=== PATIENT | female | born 1980 | race Caucasian/White ===

== ENCOUNTER 2017-04-03 10:21 | Emergency (ER) | payer MEDICAID, OTHER ==
[2017-04-03 12:18] VITALS: BP 127/74
[2017-04-03] MEDS ORDERED: HYDROcodone/ACETAMIN 5-325 MG* 1 TAB PO ONE (13:25)
--- NOTE | 2017-04-03 13:36 | ED ---
Neck Pain - HPI Summary HPI Summary: 37 yr old female with complaint of neck pain. Onset of pain was this morning as she was getting out of bed. She sat up and turned and felt pain in her left side of neck and left scapula. Pain worse with attempting to move head toward the midline and by turning it to the left. Pain is 8/10. Pain is in back of neck and radiates into left shoulder and left scapula. Pain is worse with moving, deep breath. She complains that her left hand fingers feel a little weak. - History of Current Complaint Chief Complaint: UCBackPain Stated Complaint: NECK PAIN Time Seen by Provider: 04/03/17 13:16 Hx Last Menstrual Period: last week - Allergies/Home Medications Allergies/Adverse Reactions: Allergies Allergy/AdvReac Type Severity Reaction Status Date / Time kiwi Allergy Swelling Uncoded 04/03/17 12:18 Of Face,Lips,& Throat Home Medications: Home Medications Aleve 220mg 2 tab PO ONCE PRN 04/03/17 [History Confirmed 04/03/17] buPROPion TAB* [Wellbutrin TAB*] 75 mg PO BID 04/03/17 [History Confirmed ] PMH/Surg Hx/FS Hx/Imm Hx Previously Healthy: Yes Endocrine/Hematology History: Denies: Hx Diabetes, Hx Thyroid Disease Respiratory History: Denies: Hx Asthma - Surgical History [facility] FOR UNDERBITE AND TMJ Infectious Disease History: No Infectious Disease History: Denies: Traveled Outside the [place] in Last 30 Days - Family History Known Family History: Positive: Unknown - Social History Alcohol Use: Rare Substance Use Type: Reports: None Smoking Status (MU): Former Smoker Type: Cigarettes Amount Used/How Often: ONE CIG PER DAY Have You Smoked in the Last Year: Yes Review of Systems Constitutional: Negative Positive: Other - neck pain Negative: Weakness, Paresthesia, Numbness, Syncope, Slurred Speech All Other Systems Reviewed And Are Negative: Yes Physical Exam Triage Information Reviewed: Yes Vital Signs On Initial Exam: Initial Vitals Temp Pulse Resp BP Pulse Ox 97.8 F 80 18 127/74 100 04/03/17 12:09 04/03/17 12:09 04/03/17 12:09 04/03/17 12:09 04/03/17 12:09 Vital Signs Reviewed: Yes Appearance: Positive: Well-Appearing, Pain Distress - mild Skin: Positive: Skin Color Reflects Adequate Perfusion, Dry Eyes: Positive: EOMI ENT: Positive: Normal ENT inspection Neck: Positive: Tenderness @ - low paraspinal muscles of cervical spine. Cardiovascular: Positive: RRR. Negative: Murmur Abdomen Description: Positive: Nontender Musculoskeletal: Positive: Strength/ROM Intact Neurological: Positive: Sensory/Motor Intact - except left hand geospatial engineer is weaker than the right., Alert, Oriented to Person Place, Time, CN Intact II-III Psychiatric: Positive: Normal - Sherin Coma Scale Best Eye Response: 4 - Spontaneous Best Motor Response: 6 - Obeys Commands Best Verbal Response: 5 - Oriented Diagnostics - Vital Signs Vital Signs Temp Pulse Resp BP Pulse Ox 04/03/17 12:09 97.8 F 80 18 127/74 100 - Laboratory Lab Statement: Any lab studies that have been ordered have been reviewed, and results considered in the medical decision making process. Neck Course/Dx - Course Course Of Treatment: 37 yr old with neck pain radicular in nature and associated with left hand geospatial engineer weakness. Discussed with Jeannie in the [facility] and they are aware of patient coming there. She signed the AMA form refusing trasport by ambulance. She wants her father to mechanic driver her since he is here. Risk of delay of care, further neurological imparement and disability understood. - Diagnoses Provider Diagnoses: Neck pain on left side, Radiculopathy of cervical region, Decreased geospatial engineer strength of left hand Discharge - Discharge Plan Condition: Good Disposition: HOME Patient Education Materials: Neck Pain (ED), Acute Neck Pain (ED) Referrals: Carlota Seth NP [Primary Care Provider] - Additional Instructions: You need to immediately go to [facility] for further work up and managment ofyour pain and left hand weakened geospatial engineer.
== END 2017-04-03 13:45 | disposition home or self-care (01) ==
LOC: UCCORT 10:21
DX: M54.12 Radiculopathy, cervical region (principal); Z91.018 Allergy to other foods; Z87.891 Personal history of nicotine dependence
CPT/HCPCS: 99212; G0463

== ENCOUNTER 2019-07-21 12:06 | Emergency (ER) | payer OTHER ==
[2019-07-21 12:20] VITALS: BP 132/73
--- NOTE | 2019-07-21 13:21 | UC ---
Ear Complaint HPI - HPI Summary HPI Summary: Pt presents with c/o nasal congestion, left side cheek/sinus pain and left ear pain X 1 days. - History of Current Complaint Chief Complaint: UCEar Stated Complaint: LEFT EAR COMPLAINT Time Seen by Provider: 07/21/19 13:08 Hx Obtained From: Patient Hx Last Menstrual Period: 06/2019 ?: No Onset/Duration: Sudden Onset, Lasting Days, Still Present Severity Initially: Moderate Severity Currently: Moderate Pain Intensity: 0 Associated Signs/Symptoms: Positive: Hearing Loss, URI Symptoms - Allergies/Home Medications Allergies/Adverse Reactions: Allergies Allergy/AdvReac Type Severity Reaction Status Date / Time kiwi Allergy Swelling Uncoded 07/21/19 12:16 Of Face,Lips,& Throat PMH/Surg Hx/FS Hx/Imm Hx Previously Healthy: Yes - Surgical History Surgical History: Yes Surgery Procedure, Year, and Place: [facility]GERY FOR UNDERBITE AND TMJ - Family History Known Family History: Positive: Unknown - Social History Occupation: Employed Full-time Lives: With Family Alcohol Use: Occasionally Substance Use Type: None Smoking Status (MU): Current Some Day Smoker Type: Cigarettes Amount Used/How Often: ONE CIG PER DAY Have You Smoked in the Last Year: Yes - Immunization History Most Recent Influenza Vaccination: FALL 2013 Review of Systems All Other Systems Reviewed And Are Negative: Yes Constitutional: Positive: Chills, Fatigue Skin: Positive: Negative Eyes: Positive: Negative ENT: Positive: Ear Ache Respiratory: Positive: Negative Cardiovascular: Positive: Negative Gastrointestinal: Positive: Negative Genitourinary: Positive: Negative Motor: Positive: Negative Neurovascular: Positive: Negative Musculoskeletal: Positive: Negative Neurological: Positive: Headache Psychological: Positive: Negative Is Patient Immunocompromised?: No Physical Exam Triage Information Reviewed: Yes Appearance: Ill-Appearing Vital Signs: Initial Vital Signs Temp 97.9 F 07/21/19 12:16 Pulse 85 07/21/19 12:16 Resp 13 07/21/19 12:16 BP 132/73 07/21/19 12:16 Pulse Ox 100 07/21/19 12:16 Vital Signs Reviewed: Yes Eye Exam: Normal ENT: Positive: Nasal congestion, TM red - left Dental Exam: Normal Neck exam: Normal Respiratory Exam: Normal Cardiovascular Exam: Normal Musculoskeletal Exam: Normal Neurological Exam: Normal Psychological Exam: Normal Skin Exam: Normal Ear Complaint Course/Dx - Differential Dx/Diagnosis Differential Diagnosis/HQI/PQRI: Otitis Media, URI Provider Diagnosis: Otitis media Discharge ED - Sign-Out/Discharge Documenting (check all that apply): Patient Departure All imaging exams completed and their final reports reviewed: No Studies - Discharge Plan Condition: Stable Disposition: HOME Prescriptions: Amoxicillin PO (*) [Amoxicillin 500 MG CAP*] 500 mg PO Q12H #20 cap Patient Education Materials: Ear Infection (ED), Safe Use of NSAIDs (ED) Referrals: Carlota Seth NP [Primary Care Provider] - If Needed - Billing Disposition and Condition Condition: STABLE Disposition: Home
== END 2019-07-21 13:28 | disposition home or self-care (01) ==
LOC: UCCORT 12:06
DX: H66.92 Otitis media, unspecified, left ear (principal); R09.81 Nasal congestion; R53.83 Other fatigue; F17.210 Nicotine dependence, cigarettes, uncomplicated; Z91.018 Allergy to other foods
CPT/HCPCS: 99212; G0463